=== PATIENT | male | born 1980 | race Caucasian/White ===

== ENCOUNTER 2017-08-10 09:17 | Emergency (ER) | payer BC, OTHER ==
[2017-08-10 09:21] VITALS: TEMP 97.8
[2017-08-10] MEDS ORDERED: MORPHINE SULFATE 4 MG/ML SYRINGE IV STA (09:43)
[2017-08-10] MEDS ORDERED: ONDANSETRON 4 MG/2 ML VIAL IVP STA (09:43)
[2017-08-10] MEDS ORDERED: RX INFO: IV CONTRAST WAS GIVEN 1 EACH MISC MISCELLANE PRN (09:43)
[2017-08-10] MEDS ORDERED: SODIUM CHLORIDE 0.9% 1,000 ML IV STA (09:43)
--- NOTE | 2017-08-10 09:48 | ED ---
General Adult HPI - General Chief complaint: Abdominal Pain Stated complaint: Abd Pain Time Seen by Provider: 08/10/17 09:37 Source: patient, RN notes reviewed Mode of arrival: ambulatory Limitations: no limitations - History of Present Illness Initial comments: 37-year-old male presents to the emergency room today with a chief complaint of left lower quadrant pain over the last 2 days. He does admit that was feeling some discomfort earlier in the week but the last today she's got much worse. He describes it as a "sharp" type pain. Currently rates an 8/10. Patient states that he's had diverticulitis once in the past and this feels similar to him. He denies any other complaints or symptoms. Patient denies any recent fever, chills, shortness of breath, chest pain, nausea or vomiting, numbness or tingling, dysuria or hematuria, constipation or diarrhea, headaches or visual changes, or any other complaints. - Related Data Home Medications Medication Instructions Recorded Confirmed Levofloxacin [Levaquin] 500 mg PO DAILY 08/10/17 08/10/17 Previous Rx's Medication Instructions Recorded Ciprofloxacin HCl [Cipro] 500 mg PO Q12HR #20 day 08/10/17 metroNIDAZOLE [Flagyl] 500 mg PO TID 7 Days tab 08/10/17 Allergies Allergy/AdvReac Type Severity Reaction Status Date / Time hydrocodone Allergy Unknown Vomiting Verified 08/10/17 09:27 Review of Systems ROS Statement: Those systems with pertinent positive or pertinent negative responses have been documented in the HPI. ROS Other: All systems not noted in ROS Statement are negative. Past Medical History Past Medical History: GERD/Reflux Additional Past Medical History / Comment(s): HX COLON POLYPS. diverticulosis History of Any Multi-Drug Resistant Organisms: None Reported Past Surgical History: Orthopedic Surgery Additional Past Surgical History / Comment(s): COLONOSCOPY; EGD. ARTHROSCOPY RT KNEE Additional Past Anesthesia/Blood Transfusion Reaction / Comment(s): WOKE UP DURING EGD PROCEDURE Past Psychological History: No Psychological Hx Reported Smoking Status: Never smoker Past Alcohol Use History: Occasional Past Drug Use History: None Reported - Past Family History Father Family Medical History: Cancer Additional Family Medical History / Comment(s): COLON CANCER General Exam - General Exam Comments Initial Comments: General: The patient is awake and alert, in no distress. Eye: Pupils are equal, round and reactive to light, extra-ocular movements are intact. No nystagmus. There is normal conjunctiva bilaterally. No signs of icterus. Ears, nose, mouth and throat: There are moist mucous membranes and no oral lesions. Neck: The neck is supple, there is no tenderness or JVD. Cardiovascular: There is a regular rate and rhythm. No murmur, rub or gallop is appreciated. Respiratory: Lungs are clear to auscultation, respirations are non-labored, breath sounds are equal. No wheezes, stridor, rales, or rhonchi. Gastrointestinal: Abdomen soft on palpation. Does have increased tenderness left lower quadrant. No rebound tenderness. No guarding. Mild left-sided CVA tenderness. Musculoskeletal: Normal ROM, no tenderness. Strength 5/5. Sensation intact. Pulses equal bilaterally 2+. Neurological: A&O x 3. CN II-XII intact, There are no obvious motor or sensory deficits. Coordination appears grossly intact. Speech is normal. Skin: Skin is warm and dry and no rashes or lesions are noted. Psychiatric: Cooperative, appropriate mood & affect, normal judgment. Limitations: no limitations Course Vital Signs 08/10/17 09:19 Temperature 97.8 F Pulse Rate 77 Respiratory 18 Rate Blood Pressure 106/65 O2 Sat by Pulse 97 Oximetry Medical Decision Making - Medical Decision Making Patient reexamined at this time shows no signs of distress is resting comfortable. Does admit to some improvement after medications given here the emergency room. He admits that the symptoms feel consistent with diverticulitis that is had in the past. Patient states he has been reviewed and is unremarkable at this time. Showing normal acute inflammatory changes. The patient does not that the pain is worse with movements. Was discussed that it may be muscular skeletal in nature. Advised continue Tylenol Motrin for pain. Will be started on antibiotic of Cipro Flagyl cover for possible infection in advised follow-up the family doctor tomorrow. Advised return if any symptoms increase or worsen. Patient states understanding and is in agreement. - Lab Data Result diagrams: 08/10/17 10:02 08/10/17 10:02 Lab Results 08/10/17 08/10/17 08/10/17 Range/Units 10:02 10:02 10:02 WBC 4.5 (3.8-10.6) k/uL RBC 4.58 (4.30-5.90) m/uL Hgb 14.8 (13.0-17.5) gm/dL Hct 43.4 (39.0-53.0) % MCV 94.8 (80.0-100.0) fL MCH 32.4 (25.0-35.0) pg MCHC 34.2 (31.0-37.0) g/dL RDW 12.5 (11.5-15.5) % Plt Count 213 (150-450) k/uL Neutrophils % 64 % Lymphocytes % 20 % Monocytes % 8 % Eosinophils % 5 % Basophils % 1 % Neutrophils # 2.8 (1.3-7.7) k/uL Lymphocytes # 0.9 L (1.0-4.8) k/uL Monocytes # 0.4 (0-1.0) k/uL Eosinophils # 0.2 (0-0.7) k/uL Basophils # 0.0 (0-0.2) k/uL Sodium 143 (137-145) mmol/L Potassium 4.5 (3.5-5.1) mmol/L Chloride 107 (98-107) mmol/L Carbon Dioxide 24 (22-30) mmol/L Anion Gap 12 mmol/L BUN 13 (9-20) mg/dL Creatinine 0.90 (0.66-1.25) mg/dL Est GFR (CKD-EPI)AfAm >90 (>60 ml/min/1.73 sqM) Est GFR (CKD-EPI)NonAf >90 (>60 ml/min/1.73 sqM) Glucose 78 (74-99) mg/dL Plasma Lactic Acid Ld 1.8 (0.7-2.0) mmol/L Calcium 9.8 (8.4-10.2) mg/dL Total Bilirubin 0.7 (0.2-1.3) mg/dL AST 29 (17-59) U/L ALT 33 (21-72) U/L Alkaline Phosphatase 40 (38-126) U/L Total Protein 7.4 (6.3-8.2) g/dL Albumin 4.4 (3.5-5.0) g/dL Amylase 51 (30-110) U/L Lipase 80 (23-300) U/L Urine Color Urine Appearance (Clear) Urine pH (5.0-8.0) Ur Specific [place] (1.001-1.035) Urine Protein (Negative) Urine Glucose (UA) (Negative) Urine Ketones (Negative) Urine Blood (Negative) Urine Nitrite (Negative) Urine Bilirubin (Negative) Urine Urobilinogen (<2.0) mg/dL Ur Leukocyte Esterase (Negative) 08/10/17 Range/Units 11:02 WBC (3.8-10.6) k/uL RBC (4.30-5.90) m/uL Hgb (13.0-17.5) gm/dL Hct (39.0-53.0) % MCV (80.0-100.0) fL MCH (25.0-35.0) pg MCHC (31.0-37.0) g/dL RDW (11.5-15.5) % Plt Count (150-450) k/uL Neutrophils % % Lymphocytes % % Monocytes % % Eosinophils % % Basophils % % Neutrophils # (1.3-7.7) k/uL Lymphocytes # (1.0-4.8) k/uL Monocytes # (0-1.0) k/uL Eosinophils # (0-0.7) k/uL Basophils # (0-0.2) k/uL Sodium (137-145) mmol/L Potassium (3.5-5.1) mmol/L Chloride (98-107) mmol/L Carbon Dioxide (22-30) mmol/L Anion Gap mmol/L BUN (9-20) mg/dL Creatinine (0.66-1.25) mg/dL Est GFR (CKD-EPI)AfAm (>60 ml/min/1.73 sqM) Est GFR (CKD-EPI)NonAf (>60 ml/min/1.73 sqM) Glucose (74-99) mg/dL Plasma Lactic Acid Ld (0.7-2.0) mmol/L Calcium (8.4-10.2) mg/dL Total Bilirubin (0.2-1.3) mg/dL AST (17-59) U/L ALT (21-72) U/L Alkaline Phosphatase (38-126) U/L Total Protein (6.3-8.2) g/dL Albumin (3.5-5.0) g/dL Amylase (30-110) U/L Lipase (23-300) U/L Urine Color Light Yellow Urine Appearance Clear (Clear) Urine pH 5.5 (5.0-8.0) Ur Specific [place] 1.009 (1.001-1.035) Urine Protein Negative (Negative) Urine Glucose (UA) Negative (Negative) Urine Ketones Negative (Negative) Urine Blood Negative (Negative) Urine Nitrite Negative (Negative) Urine Bilirubin Negative (Negative) Urine Urobilinogen <2.0 (<2.0) mg/dL Ur Leukocyte Esterase Negative (Negative) Disposition Clinical Impression: Abdominal pain Disposition: HOME SELF-CARE Condition: Good Instructions: Abdominal Pain (ED) Additional Instructions: Please use medication as discussed. Please follow-up with family doctor in the next 2 days. Please return to emergency room if the symptoms increase or worsen or for any other concerns. Prescriptions: Ciprofloxacin HCl [Cipro] 500 mg PO Q12HR #20 day metroNIDAZOLE [Flagyl] 500 mg PO TID 7 Days tab Referrals: Corey Flowers MD [Primary Care Provider] - 1-2 days Time of Disposition: 12:03
[2017-08-10 10:19] LABS: Basophils % (A) 1 %; Eosinophils # (A) 0.2 k/uL (0-0.7); Eosinophils % (A) 5 %; HCT 43.4 % (39.0-53.0); HGB 14.8 gm/dL (13.0-17.5); Lymphocytes # (A) 0.9 k/uL (1.0-4.8); Lymphocytes % (A) 20 %; MCH 32.4 pg (25.0-35.0); MCHC 34.2 g/dL (31.0-37.0); MCV 94.8 fL (80.0-100.0); Mean Platelet Volume 7.4; Monocytes # (A) 0.4 k/uL (0-1.0); Monocytes % (A) 8 %; Neutrophils # (A) 2.8 k/uL (1.3-7.7); Neutrophils % (A) 64 %; Platelet Count 213 k/uL (150-450); RBC 4.58 m/uL (4.30-5.90); RDW 12.5 % (11.5-15.5); WBC 4.5 k/uL (3.8-10.6)
[2017-08-10 10:29] LABS: ALT 33 U/L (21-72); AST 29 U/L (17-59); Albumin 4.4 g/dL (3.5-5.0); Alkaline Phosphatase 40 U/L (38-126); Amylase 51 U/L (30-110); Anion Gap 12 mmol/L; Blood Urea Nitrogen 13 mg/dL (9-20); Calcium 9.8 mg/dL (8.4-10.2); Carbon Dioxide 24 mmol/L (22-30); Chloride 107 mmol/L (98-107); Glucose 78 mg/dL (74-99); Lipase 80 U/L (23-300); Potassium 4.5 mmol/L (3.5-5.1); Sodium 143 mmol/L (137-145); Total Bilirubin 0.7 mg/dL (0.2-1.3); Total Protein 7.4 g/dL (6.3-8.2)
--- NOTE | 2017-08-10 10:56 | CT ---
EXAMINATION TYPE: CT abdomen pelvis w con DATE OF EXAM: 08/10/2017 REFERENCE: Previous study dated 04/30/2016 HISTORY: abdominal pain REFERENCE: NONE CT DLP: 1644 mGy Automated exposure control for dose reduction was used. TECHNIQUE: Helical acquisition through the abdomen and pelvis was obtained without oral contrast and following intravenous administration of 100 mL of Omnipaque 300. The data was reformatted in axial, c oronal and sagittal projections. FINDINGS: There is minimal dependent atelectasis at the lung bases. There is no pleural or pericardi al fluid. The heart is not enlarged. Within the abdomen, the liver, spleen and gallbladder appear unremarkable. Both adrenal glands appear normal. Both kidneys demonstrate function and appear morphologically normal. The pancreas is unremarkable. There is no significant retroperitoneal, iliac or inguinal adenopathy. The bladder is unremarkable. There are scattered diverticula throughout the sigmoid colon without radiographic evidence of diverti culitis. The appendix is normal. Small bowel loops are normal. There is no free fluid and no free air identified. There is a hemangioma in the T11 vertebral body. No other osseous lesion is seen. IMPRESSION: 1. NO ACUTE INFLAMMATORY ABNORMALITY. 2. UNCOMPLICATED DIVERTICULOSIS OF THE SIGMOID COLON.
[2017-08-10] MEDS ORDERED: KETOROLAC 30 MG/ML 1 ML VIAL IVP STA (11:10)
[2017-08-10 11:18] LABS: Appearance,Urine Clear (Clear); Bilirubin,Urine Negative (Negative); Blood,Urine Negative (Negative); Color,Urine Light Yellow; Glucose,Urine (UA) Negative (Negative); Ketones,Urine Negative (Negative); Leukocyte Esterase,Urine Negative (Negative); Nitrite,Urine Negative (Negative); PH, Urine 5.5 (5.0-8.0); Protein,Urine Negative (Negative); Specific Gravity,Urine 1.009 (1.001-1.035); Urobilinogen,Urine <2.0 mg/dL (<2.0)
[2017-08-10 12:16] VITALS: BP 132/68; PULSE 78; RESP 16
== END 2017-08-10 12:15 | disposition home or self-care (01) ==
LOC: EC 09:17
DX: R10.32 Left lower quadrant pain (principal); Z87.19 Personal history of other diseases of the digestive system; Z88.5 Allergy status to narcotic agent
CPT/HCPCS: 36415; 80053; 82150; 83605; 83690; 85025; 81003; 74177; 99284; 96374; 96375 ×2; 96361; J2270; J2405; J1885; Q9967

== ENCOUNTER 2018-06-24 11:54 | Emergency (ER) | payer BC ==
[2018-06-24 12:00] VITALS: RESP 18; TEMP 97.6
--- NOTE | 2018-06-24 13:54 | CT ---
EXAMINATION TYPE: CT brain wo con DATE OF EXAM: 06/24/2018 COMPARISON: MRI brain 08/23/2015 INDICATION: Right pupil dilated. DLP: 1070 mGycm, Automated exposure control for dose reduction was used. CONTRAST: None CT of the brain is performed utilizing 3 mm thick sections through the posterior fossa and 3 mm thick sections through the remaining calvarium. Study is performed within 24 hours of arrival to the hosp [facility]. No abnormal hyperdensity is present to suggest an acute intracranial hemorrhage. No mass lesion is evident. The region of the optic chiasm appears unremarkable. No acute infarcts are evident. Ventricles and sulci are appropriate for the patient age. Paranasal sinuses and mastoid air cells within the [id number] are clear. IMPRESSIONS: 1. Normal CT Brain
--- NOTE | 2018-06-24 13:57 | CT ---
EXAMINATION TYPE: CT angio COW [place] DATE OF EXAM: 06/24/2018 HISTORY: Right pupil dilated. COMPARISON: CT brain same date CT DLP: 991 mGycm. Automated Exposure Control for Dose Reduction was Utilized. TECHNIQUE: CTA scan of the neck is performed with IV Contrast, patient injected with 100 mL of Isovu e 370, axial images are obtained, coronal and sagittal reformatted images are reviewed. Three-D recon structed images are created on an independent workstation and reviewed. FINDINGS: Other: [place]: Internal carotid arteries bifurcate normally and A1 and M1 segments. A2 segm ents appear normal. Middle cerebral artery branches are normal. The anterior communicating artery is patent. The left posterior communicating artery is patent. Vertebral basilar system appears normal. P osterior cerebral vasculature is unremarkable. Three-D reconstructed images are reviewed and appear unremarkable. IMPRESSION: 1. CTA [place] appears within normal limits.
--- NOTE | 2018-06-24 14:11 | ED ---
Eye Problem HPI - General Source: patient Mode of arrival: ambulatory Limitations: no limitations <Hodan Bragg - Last Filed: 06/24/18 16:28> <Royce Dimas - Last Filed: 06/24/18 16:42> - General Chief complaint: Eye Problems Stated complaint: eye problem Time Seen by Provider: 06/24/18 12:07 - History of Present Illness Initial comments: 38-year-old male with distant history of concussion 3 years ago presenting today for chief complaint of right eye pupil dilation. Patient states that he was at home on his computer earlier today in a well lit room when he felt as though his right eye felt different, he is unable to fully describe presented almost a pressure, he denies any pain or discomfort. Patient has a photophobia headache nausea vomiting. He states he looked into the mirror that his right eye and his pupils dilated much larger comparison with the left. Patient states that earlier this morning when he put in his contact lenses it was not that way. Patient denies any use of topical medications, he did use "anti- redness" drops however this was bilaterally. 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 Carmen monique for the past 2 years in regards to this condition. Patient states he has had previous MRIs of the brain with the last being 2 years ago. Patient denies being notified of any abnormalities. Remainder of review of systems negative, patient denies any dizziness, tinnitus , muscle weakness, numbness, tingling, paresthesias, sensation deficits, speech changes, gait ataxia. Upon arrival patient's vital signs within acceptable limits. Patient is well-appearing inability without difficulty. (Hodan Bragg) - Related Data Allergies Allergy/AdvReac Type Severity Reaction Status Date / Time hydrocodone Allergy Unknown Vomiting Verified 06/24/18 12:12 Review of Systems ROS Other: All systems not noted in ROS Statement are negative. <Hodan Bragg - Last Filed: 06/24/18 16:28> ROS Other: All systems not noted in ROS Statement are negative. <Royce Dimas - Last Filed: 06/24/18 16:42> ROS Statement: Those systems with pertinent positive or pertinent negative responses have been documented in the HPI. Past Medical History Past Medical History: GERD/Reflux Additional Past Medical History / Comment(s): HX COLON POLYPS. diverticulosis, head injury (mild, concussion NOT A TBI, 2015) History of Any Multi-Drug Resistant Organisms: None Reported Past Surgical History: Orthopedic Surgery Additional Past Surgical History / Comment(s): COLONOSCOPY; EGD. ARTHROSCOPY RT KNEE Additional Past Anesthesia/Blood Transfusion Reaction / Comment(s): WOKE UP DURING EGD PROCEDURE Past Psychological History: No Psychological Hx Reported Smoking Status: Never smoker Past Alcohol Use History: Occasional Past Drug Use History: None Reported - Past Family History Father Family Medical History: Cancer Additional Family Medical History / Comment(s): COLON CANCER <Hodan Bragg - Last Filed: 06/24/18 16:28> General Exam Limitations: no limitations <Hodan Bragg - Last Filed: 06/24/18 16:28> <WingRoyce Alcaraz - Last Filed: 06/24/18 16:42> - General Exam Comments Initial Comments: General: The patient is awake and alert, in no distress, and does not appear acutely ill. Eye: VA 20/20 OD, 20/20 OS, 20/20 both eyes with +7mm pupil OD, +3mm pupil OS both are round and reactive to light, extra-ocular movements are intact. No conjugate gaze. No steamy cornea noted. No obvious APD. No nystagmus. There is normal conjunctiva bilaterally. No signs of icterus. To Ptosis. No cell and flare. IOP 16 OD, 15OS. No corneal defects on eye exam. Ears, nose, mouth and throat: There are moist mucous membranes and no oral lesions. Neck: The neck is supple, there is no tenderness or JVD. Cardiovascular: There is a regular rate and rhythm. No murmur, rub or gallop is appreciated. Respiratory: Lungs are clear to auscultation, respirations are non-labored, breath sounds are equal. No wheezes, stridor, rales, or rhonchi.] Musculoskeletal: Normal ROM, no tenderness. Strength 5/5 of the UE and LE equal b/l. Sensation intact of the UE and LE equal b/l. Radial pulses equal bilaterally 2+. Gait normal. Neurological: A&O x 3. CN II-XII intact, There are no obvious motor or sensory deficits. Coordination appears grossly intact. Speech is normal. Skin: Skin is warm and dry and no rashes or lesions are noted. Psychiatric: Cooperative, appropriate mood & affect, normal judgment. 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 Right eye pressure with normal IOP, no pain/n/v/. VA equal b/l. 20/20. Optic nerve borders appears blurred. Denies associated symptoms. No steamy cornea. Pupils are reactive ot light. EOM intact. CTA and CT wo contract (-). No focal neurological deficits on examination. Ophthalmology was contacted, attending provider Dr. Dimas spoke with Dr. Da Silva who recommended outpatient follow- up. At this time I do feel pt is stable for discharge with close follow-up with ophthalmology as well as her condition for repeat MRI. Patient is follow up with primary care provider next 1-2 days. Pt is argeeable with plan and discharge. Continues to deny symptoms. Pt discharged in stable condition appearing well aware of f/u and return parameters. (Hodan Bragg) 38-year-old male presenting with dilated right pupil. Exam: Patient has 20/20 vision in both eyes, normal intraocular pressure, normal extraocular motion, no ptosis. CT brain is obtained, negative for intracranial hemorrhage, CT angiography is obtained, no aneurysm. I did discuss case with Dr. Anderson, recommends outpatient follow-up at this time. No need for further evaluation in the emergency department. (Royce Dimas) Disposition Is patient prescribed a controlled substance at d/c from ED?: No Time of Disposition: 14:56 <Hodan Bragg - Last Filed: 06/24/18 16:28> <Royce Dimas - Last Filed: 06/24/18 16:42> Clinical Impression: Miosis Disposition: HOME SELF-CARE Condition: Good Instructions (If sedation given, give patient instructions): Optic Neuritis (ED ) Additional Instructions: Please follow-up with ophthalmology in the next 1-2 days as discussed. Please return to emergency room if the symptoms increase or worsen or for any other concerns, visual loss diplopia, nausea, vomiting, headache or eye pain. Referrals: Corey Flowers MD [Primary Care Provider] - 1-2 days Mike Anderson MD [STAFF PHYSICIAN] - 1-2 days
[2018-06-24 14:56] VITALS: BP 100/76; PULSE 60
== END 2018-06-24 15:11 | disposition home or self-care (01) ==
LOC: EC 11:54
DX: H57.03 Miosis (principal); H53.149 Visual discomfort, unspecified; R11.2 Nausea with vomiting, unspecified; R51 Headache; Z87.820 Personal history of traumatic brain injury; Z88.5 Allergy status to narcotic agent
CPT/HCPCS: 70496; 70450; 99284; Q9967

== ENCOUNTER 2019-08-04 07:55 | Day surgery (SDC) | payer BC ==
[2019-08-02 10:23] VITALS: BMI 25.7
[2019-08-04 08:29] VITALS: TEMP 97
[2019-08-04 09:44] VITALS: RESP 18
[2019-08-04 10:03] VITALS: BP 101/68; PULSE 49
== END 2019-08-04 10:21 | disposition home or self-care (01) ==
LOC: ORWHC2ENDO 07:55
PROVIDERS: ATTEND Surgery Plastic and Reconstructive Surgery
DX: Z12.11 Encounter for screening for malignant neoplasm of colon (principal); K57.30 Diverticulosis of large intestine without perforation or abscess without bleeding; K29.50 Unspecified chronic gastritis without bleeding; K29.80 Duodenitis without bleeding; K64.0 First degree hemorrhoids; Z86.010 Personal history of colon polyps; K44.9 Diaphragmatic hernia without obstruction or gangrene; K21.0 Gastro-esophageal reflux disease with esophagitis; K22.10 Ulcer of esophagus without bleeding; Z80.0 Family history of malignant neoplasm of digestive organs; Z88.5 Allergy status to narcotic agent; Z98.890 Other specified postprocedural states
CPT/HCPCS: 88305; 43239; J2001; J2704; G0105; 45378

== ENCOUNTER → 2021-12-04 | Outpatient (CLI) | payer OTHER ==
--- NOTE | 2021-12-04 12:04 | XR ---
EXAMINATION TYPE: XR knee complete RT DATE OF EXAM: 12/04/2021 CLINICAL HISTORY: pain TECHNIQUE: Three views of the right knee are obtained. COMPARISON: None. FINDINGS: There is no acute fracture/dislocation. The tri-compartment joint spaces appear within no rmal limits. The overlying soft tissue appears unremarkable. IMPRESSION: There is no acute fracture or dislocation.ICD 10 NO FRACTURE, INITIAL EVALUATION
== END | disposition home or self-care (01) ==
LOC: RADXRMAIN 11:47
PROVIDERS: ATTEND Family Medicine
DX: M25.561 Pain in right knee (principal)